=== PATIENT | male | born 1960 | race Native Hawaiian/Other Pacific Islander ===

== ENCOUNTER 2022-06-25 10:45 | Emergency (ER) | payer OTHER ==
[~2022-06-25] VITALS: Ht 182.9 cm; Wt 86.2 kg
[2022-06-25 10:45] VITALS: TEMP 97.5
[2022-06-25 11:53] LABS: PLATELET COUNT 477 K/uL (142-355)
[2022-06-25 12:06] LABS: SODIUM 110 mmol/L (136-145)
[2022-06-25 12:07] LABS: POTASSIUM 2.3 mmol/L (3.6-5.2)
[2022-06-25 17:04] VITALS: BP 103/46
== END 2022-06-25 17:04 | disposition short-term general hospital (02) ==
LOC: ED 10:45
PROVIDERS: Emergency Medicine
PROC: 0T9B70Z Drainage of Bladder with Drainage Device, Via Natural or Artificial Opening (ICD-10-PCS; principal; 2022-06-25)
DX: E87.1 Hypo-osmolality and hyponatremia (principal); E87.6 Hypokalemia; D72.828 Other elevated white blood cell count; I95.89 Other hypotension; J18.9 Pneumonia, unspecified organism; R53.1 Weakness; F20.89 Other schizophrenia; K44.9 Diaphragmatic hernia without obstruction or gangrene; Z11.52 Encounter for screening for COVID-19
CPT/HCPCS: 36415; 51702; 80053; 80143; 80179; 80307; 81002; 83605; 84484; 85007; 85027; 87040; 87635; 93005; 96361; 96365; 96366; 96375; 99285; J0696; J1100; J1265; U0003